=== PATIENT | male | born 2000 ===

== ENCOUNTER 2018-10-24 18:59 | Emergency (ER) | payer SELFPAY ==
[2018-10-24 19:14] VITALS: RESP 18
[2018-10-24] MEDS ORDERED: Sodium Chloride 0.9% 1,000 ML IV ONE (20:15)
[2018-10-24 20:28] LABS: BASO % 0.3 % (0.0-2.0); EOS # 0.2 K/uL (0.0-0.7); EOS % 2.7 % (0.0-4.0); HEMOGLOBIN 13.7 g/dL (12.0-18.0); LYMPH # 2.3 K/uL (1.0-4.3); LYMPH % 35.3 % (20.0-40.0); MEAN CORPUSCULAR HEMOGLOBIN 31.2 pg (27.0-31.0); MEAN CORPUSCULAR HGB CONC 33.6 g/dL (33.0-37.0); MEAN PLATELET VOLUME 9.1 fL (7.2-11.7); MONO # 0.3 K/uL (0.0-0.8); MONO % 5.2 % (0.0-10.0); NEUT # 3.7 K/uL (1.8-7.0); NEUT % 56.5 % (50.0-75.0); RBC 4.4 Mil/uL (4.40-5.90); RED CELL DISTRIBUTION WIDTH 12.7 % (11.5-14.5); WHITE BLOOD COUNT 6.6 K/uL (4.8-10.8)
[2018-10-24] MEDS ORDERED: Morphine 4 MG/ML VIAL IV STA (20:32)
[2018-10-24 20:38] LABS: URINE BILIRUBIN NEGATIVE (NEGATIVE); URINE BLOOD NEGATIVE (NEGATIVE); URINE CLARITY Clear (Clear); URINE COLOR Yellow (YELLOW); URINE GLUCOSE (UA) NORMAL (Normal); URINE LEUKOCYTE ESTERASE NEG Leu/uL (Negative); URINE PROTEIN NEGATIVE (NEGATIVE); URINE UROBILINOGEN NORMAL mg/dL (0.2-1.0)
[2018-10-24] MEDS ORDERED: Morphine 4 MG/ML VIAL ONE (20:45)
[2018-10-24 20:46] LABS: ALBUMIN 4.8 g/dL (3.5-5.0); BLOOD UREA NITROGEN 16 mg/dL (9-20); CALCIUM 9.7 mg/dl (8.6-10.4); GFR NON-AFRICAN AMERICAN > 60
[2018-10-24 20:48] LABS: ALT/SGPT 35 U/L (21-72); AST/SGOT 50 U/L (17-59)
[2018-10-24] MEDS ORDERED: Iohexol 300 100 ML IJ ONE (21:10)
[2018-10-24 21:45] LABS: INR 1.1; PROTHROMBIN TIME 12.5 SECONDS (9.7-12.2)
--- NOTE | 2018-10-24 22:43 | C.PDOC ---
History Of Present Illness 18 year old male presents to the ED for evaluation of right lower quadrant abdominal pain which began around 3 days ago. Patient reports fever (did not record temperature), decreased appetite and one episode of vomiting. Patient reports taking diclofenac yesterday without relief. Patient denies previous medical history of history of surgeries. Time Seen by Provider: 10/24/18 20:18 Chief Complaint (Nursing): Abdominal Pain History Per: Patient History/Exam Limitations: no limitations Onset/Duration Of Symptoms: Hrs Current Symptoms Are (Timing): Still Present Location Of Pain/Discomfort: RLQ Quality Of Discomfort: "Pain" Associated Symptoms: Fever, Vomiting Past Medical History Reviewed: Historical Data, Nursing Documentation, Vital Signs Vital Signs: Last Vital Signs Temp 98.7 F 10/24/18 19:11 Pulse 76 10/24/18 19:11 Resp 18 10/24/18 19:11 BP 124/52 L 10/24/18 19:11 Pulse Ox 98 10/24/18 19:11 - Medical History PMH: No Chronic Diseases Surgical History: No Surg Hx Family History: States: Unknown Family Hx - Social History Hx Alcohol Use: No Hx Substance Use: No - Immunization History Hx Tetanus Toxoid Vaccination: No Hx Influenza Vaccination: Yes Hx Pneumococcal Vaccination: Yes Review Of Systems Constitutional: Positive for: Fever. Negative for: Chills, Weakness ENT: Negative for: Mouth Swelling Respiratory: Negative for: Cough, Shortness of Breath, Sputum Gastrointestinal: Positive for: Vomiting, Abdominal Pain (right lower quadrant ) Genitourinary: Negative for: Dysuria, Frequency, Hematuria Skin: Negative for: Rash Neurological: Negative for: Weakness, Numbness, Dizziness Physical Exam - Physical Exam Appears: Well, Non-toxic, No Acute Distress, Other (uncomfortable ) Skin: Normal Color, Warm, No Rash Head: Atraumatic, Normacephalic Eye(s): bilateral: Normal Inspection, PERRL, EOMI Oral Mucosa: Moist Throat: Normal (no swelling or injection ), No Exudate, Other (airway patent ) Neck: Supple Chest: Symmetrical Respiratory: No Accessory Muscle Use, Other (normal inspiratory effort ) Gastrointestinal/Abdominal: Soft, Tenderness (right lower quadrant ), Guarding, No Rebound, No Other (Rovsing's sign) Extremity: Normal ROM, Capillary Refill (less than 2 seconds ) Extremity: Bilateral: Atraumatic Neurological/Psych: Oriented x3, Normal Cranial Nerves (grossly intact ) ED Course And Treatment - Laboratory Results Result Diagrams: 10/24/18 20:19 10/24/18 20: Lab Results: PT 12.5 SECONDS (9.7-12.2) H 10/24/18 20:57 INR 1.1 10/24/18 20:57 Total Bilirubin 0.5 mg/dL (0.2-1.3) 10/24/18 20:19 AST 50 U/L (17-59) 10/24/18 20:19 ALT 35 U/L (21-72) 10/24/18 20: Alkaline Phosphatase 72 U/L (38-126) 10/24/18 20: Total Protein 7.1 g/dL (6.3-8.3) 10/24/18 20: Albumin 4.8 g/dL (3.5-5.0) 10/24/18 20: Globulin 2.4 gm/dL (2.2-3.9) 10/24/18 20: Albumin/Globulin Ratio 2.0 (1.0-2.1) 10/24/18 20:19 Urine Color Yellow (YELLOW) 10/24/18 20: Urine Clarity Clear (Clear) 10/24/18: Urine pH 6.0 (5.0-8.0) 10/24/18 20: Ur Specific [place] 1.020 (1.003-1.030) 10/24/18 20: Urine Protein Negative mg/dL (NEGATIVE) 10/24/18 20: Urine Glucose (UA) Normal mg/dL (Normal) 10/24/18 20: Urine Ketones Negative mg/dL (NEGATIVE) 10/24/18 20: Urine Blood Negative (NEGATIVE) 10/24/18 20: Urine Nitrate Negative (NEGATIVE) 10/24/18 20: Urine Bilirubin Negative (NEGATIVE) 10/24/18 20: Urine Urobilinogen Normal mg/dL (0.2-1.0) 10/24/18 20:19 Ur Leukocyte Esterase Neg Reese/uL (Negative) 10/24/18 20:19 Urine WBC (Auto) < 1 /hpf (0-5) 10/24/18 20: Urine RBC (Auto) < 1 /hpf (0-3) 10/24/18 20:19 O2 Sat by Pulse Oximetry: 98 - CT Scan/US CT A/P Other Rad Studies (CT/US): Read By Radiologist, Radiology Report Reviewed CT/US Interpretation: EXAM: CT Abdomen and Pelvis with IV contrast. CLINICAL HISTORY: Rlq pain. TECHNIQUE: Axial computed tomography images of the abdomen and pelvis with intravenous contrast. 0.00 mGy-cm. CONTRAST: With; 100MLS OMNI 300. COMPARISON: None provided. FINDINGS: LUNG BASES: The lung bases appear clear. No pleural effusions are seen. LIVER: Unremarkable. GALLBLADDER AND BILE DUCTS: The gallbladder appears within normal limits. No radioopaque gallstones are seen. No biliary ductal dilatation is evident. PANCREAS: Unremarkable. SPLEEN: Unremarkable. ADRENAL GLANDS: Unremarkable. KIDNEYS, URETERS, AND BLADDER: The kidneys appear within normal limits. There is no hydronephrosis or hydroureter. No urinary calculi are seen. The urinary bladder appeared normal in size and configuration. STOMACH AND BOWEL: Mucosal wall thickening is seen within the stomach, duodenum and small intestinal tract with associated fluid in the lumen thought compatible with gastritis, duodenitis, diffuse enteritis. Infectious or inflammatory etiologies are thought most likely. No evidence of bowel obstruction. No evidence suggesting colitis. Mildly abundant fecal material is noted within the colon thought compatible with some constipation. APPENDIX: No evidence of acute appendicitis on CT examination. PERITONEUM: No free fluid. No free air. LYMPH NODES: No lymphadenopathy is evident. REPRODUCTIVE: Unremarkable as visualized. VASCULATURE: No evidence of abdominal aortic aneurysm. BONES: No aggressive appearing osseous lesion. No acute osseous pathology evident. IMPRESSION: 1. Evidence of gastritis, duodenitis, diffuse enteritis. 2. Evidence of mild constipation. Medical Decision Making Medical Decision Making: Progress: Bloodwork, urinalysis, CT A/P ordered and reviewed. Morphine IVP and IV Fluids given. On reassessment, patient is resting comfortably, showing no signs of distress and is stable for discharge. Patient is advised to f/u with PMD within 1-2 days for further evaluation. Disposition Counseled Patient/Family Regarding: Diagnosis, Need For Followup - Disposition Referrals: [facility] [Outside] Disposition: HOME/ ROUTINE Disposition Time: 22:41 Condition: STABLE Instructions: Viral Gastroenteritis, Adult (DC) Forms: Gen Discharge Inst [place]uan, [employer] ([place]uan), School Excuse Print Language: DANISH - Clinical Impression Clinical Impression: Enteritis - PA / [employer] / Resident Statement MD/DO has reviewed & agrees with the documentation as recorded. - Scribe Statement The provider has reviewed the documentation as recorded by the Scribe (Zulma Ontiveros) All medical record entries made by the Scribe were at my direction and personally dictated by me. I have reviewed the chart and agree that the record accurately reflects my personal performance of the history, physical exam, medical decision making, and the department course for this patient. I have also personally directed, reviewed, and agree with the discharge instructions and disposition.
[2018-10-24 23:07] VITALS: BP 128/64; PULSE 77; TEMP 98.6
[2018-10-25 03:53] VITALS: O2SAT 98
--- NOTE | 2018-10-25 10:17 | CT ---
Date of service: 10/24/2018 PROCEDURE: CT Abdomen and Pelvis with contrast HISTORY: rlq pain COMPARISON: None available. TECHNIQUE: Contrast dose: 100 mL Omnipaque 300 IV Radiation dose: Total exam DLP = 680.0 mGy-cm. This CT exam was performed using one or more of the following dose reduction techniques: Automated exposure control, adjustment of the mA and/or kV according to patient size, and/or use of iterative reconstruction technique. FINDINGS: LOWER THORAX: No visible consolidation, pleural effusion, or pneumothorax. LIVER: Unremarkable. GALLBLADDER AND BILE DUCTS: Unremarkable. PANCREAS: Unremarkable. SPLEEN: Unremarkable. ADRENALS: Unremarkable. KIDNEYS AND URETERS: The kidneys enhance symmetrically. No hydronephrosis or obstructing calculus identified. VASCULATURE: No aortic aneurysm. No atherosclerotic calcification or mural plaque present. BOWEL: Stomach is nondistended. Lack of oral contrast limits evaluation for bowel pathology. Bowel loops appear within normal limits of caliber without evidence of obstruction. [id number] constipation. APPENDIX: The appendix appears within normal limits of caliber. No secondary signs of acute appendicitis. PERITONEUM: No significant free fluid. No definite free air. LYMPH NODES: No bulky adenopathy identified. BLADDER: Unremarkable. REPRODUCTIVE: Unremarkable. BONES: No acute osseous abnormality is detected. OTHER FINDINGS: None. IMPRESSION: [id number] constipation. Preliminary impression was provided by [employer].
== END 2018-10-24 23:07 | disposition home or self-care (01) ==
LOC: C.ER 18:59
DX: K52.9 Noninfective gastroenteritis and colitis, unspecified (principal)
CPT/HCPCS: 74177; 80053; 81001; 85025; 85610; 96374; 99284; J2270; J7030; Q9967